=== PATIENT | male | born 1960 | race Hispanic/Latino ===

== ENCOUNTER 2016-12-19 14:43 | Observation (INO) | payer BC ==
[2016-12-19 14:44] VITALS: BMI 29.8
[2016-12-19] MEDS ORDERED: Sodium Chloride 0.9% 1,000 ML IV ONE (16:08)
--- NOTE | 2016-12-19 16:41 | RAD ---
PROCEDURE: CHEST RADIOGRAPH, 1 VIEW HISTORY: SOB COMPARISON: None available. FINDINGS: LUNGS: The lungs are well inflated and clear. PLEURA: No pneumothorax or pleural fluid seen. CARDIOVASCULAR: Normal. OSSEOUS STRUCTURES: No significant abnormalities. VISUALIZED UPPER ABDOMEN: Normal. OTHER FINDINGS: A right DRILLING PLANT OPERATOR shunt catheter is partially visualized. IMPRESSION: No active pulmonary disease.
--- NOTE | 2016-12-19 16:56 | C.PDOC ---
History Of Present Illness 56 y/o male is sent to the ED by Dr. Paniagua for worsening weakness in the bilateral lower extremities. Patient reports past history of stroke causing "trouble walking" due to weakness. Patient is a poor historian and cannot contribute further. Patient denies worsening of weakness, new weakness, leg pain , leg swelling, pain with urination, or other complaints. He states that he was able to walk with his cane as usual today. Time Seen by Provider: 12/19/16 16:02 Chief Complaint (Nursing): GI Problem History Per: Patient History/Exam Limitations: no limitations Onset/Duration Of Symptoms: Persistent Current Symptoms Are (Timing): Still Present Severity: Moderate Recent travel outside of the [place]: No Past Medical History Reviewed: Historical Data, Nursing Documentation, Vital Signs Vital Signs: Last Vital Signs Temp 98.1 F 12/19/16 15:12 Pulse 90 12/19/16 15:12 Resp 20 12/19/16 15:12 BP 124/91 H 12/19/16 15:12 Pulse Ox 97 12/19/16 18:51 - Medical History PMH: Bipolar Disorder, COPD, Gall Bladder Disease, HTN, Hypothyroidism, Schizophrenia Surgical History: Cholecystectomy - [facility] Procedures INSERTION OF INFUSION DEV INTO L BASILIC VEIN, PERC APPROACH (08/24/16) INSERTION OF INFUSION DEV INTO L SUBCLAV VEIN, PERC APPROACH (08/24/16) ULTRASONOGRAPHY OF LEFT UPPER EXTREMITY VEINS, GUIDANCE (08/24/16) Family History: States: No Known Family Hx - Social History Hx Tobacco Use: Yes (1PPD) Hx Alcohol Use: No Hx Substance Use: No (DENIED) - Immunization History Hx Tetanus Toxoid Vaccination: No Hx Influenza Vaccination: No Hx Pneumococcal Vaccination: No Review Of Systems Except As Marked, All Systems Reviewed And Found Negative. Genitourinary: Negative for: Dysuria Musculoskeletal: Negative for: Leg Pain (or swelling) Neurological: Positive for: Weakness (b/l lower extremities - due to stroke) Physical Exam - Physical Exam Appears: Non-toxic, No Acute Distress Skin: Normal Color, Warm, Dry Head: Atraumatic, Normacephalic Eye(s): bilateral: Normal Inspection Oral Mucosa: Moist Neck: Normal ROM Chest: Symmetrical Cardiovascular: Rhythm Regular, No Friction Rub, No Murmur Respiratory: Normal Breath Sounds, No Rales, No Rhonchi, No Wheezing Gastrointestinal/Abdominal: Soft, No Tenderness Back: Normal Inspection, No CVA Tenderness Extremity: No Tenderness, No Swelling, Other (b/l lower extremity weakness; FROM b/l upper extremities) Pulses: Left Dorsalis Pedis: Normal, Right Dorsalis Pedis: Normal Neurological/Psych: No Oriented x3, Normal Speech, Normal Cognition Disoriented To: Place, Time ED Course And Treatment - Laboratory Results Result Diagrams: 12/19/16 18:41 12/19/16 18:41 ECG: Interpreted By Me ECG Rhythm: Sinus Rhythm Interpretation Of ECG: T wave abnormalities in V2-V5 - changed from 11/05/2016 Rate From EC (bpm) O2 Sat by Pulse Oximetry: 97 (ra) Pulse Ox Interpretation: Normal - Other Rad Chest X-Ray X-Ray: Viewed By Me, Read By Radiologist (Addie Lindquist MD) Interpretation: FINDINGS: LUNGS: The lungs are well inflated and clear. PLEURA: No pneumothorax or pleural fluid seen. CARDIOVASCULAR: Normal. OSSEOUS STRUCTURES: No significant abnormalities. VISUALIZED UPPER ABDOMEN: Normal. OTHER FINDINGS: A right PULLEY MAINTAINER shunt catheter is partially visualized. IMPRESSION: No active pulmonary disease. Medical Decision Making Medical Decision Making: Plan: * EKG * CXR * Blood Work * Urinalysis * IV Fluids The case was discuss with Dr. Paniagua. HE states that the patient is an unsafe discharge as there is frequent falls, increased confusion, and weakness and will admit to his service. EKG found to have T wave inversion, but patient has no chest pain or Shortness of breath. Disposition - Disposition Disposition: HOSPITALIZED Disposition Time: 17:30 Condition: STABLE - Clinical Impression Clinical Impression: Generalized weakness, Frequent falls, Failure to thrive, Abnormal EKG - PA / DISTRIBUTOR SALES MANAGER / Resident Statement MD/DO has reviewed & agrees with the documentation as recorded. - Scribe Statement The provider has reviewed the documentation as recorded by the Scribe (Ana Calhoun) All medical record entries made by the Scribe were at my direction and personally dictated by me. I have reviewed the chart and agree that the record accurately reflects my personal performance of the history, physical exam, medical decision making, and the department course for this patient. I have also personally directed, reviewed, and agree with the discharge instructions and disposition.
[2016-12-19 18:52] LABS: BASO % 0.6 % (0.0-2.0); EOS # 0.2 K/uL (0.0-0.7); EOS % 2.7 % (0.0-4.0); HEMATOCRIT 39.6 % (35.0-51.0); LYMPH # 1.6 K/uL (1.0-4.3); LYMPH % 18.1 % (20.0-40.0); MEAN CELL VOLUME 95.7 fL (80.0-94.0); MEAN CORPUSCULAR HEMOGLOBIN 31.9 pg (27.0-31.0); MEAN CORPUSCULAR HGB CONC 33.4 g/dL (33.0-37.0); MEAN PLATELET VOLUME 9.5 fL (7.2-11.7); MONO # 0.8 K/uL (0.0-0.8); MONO % 8.9 % (0.0-10.0); RED CELL DISTRIBUTION WIDTH 13.3 % (11.5-14.5); WHITE BLOOD COUNT 8.7 K/uL (4.8-10.8)
[2016-12-19 19:00] LABS: CHLORIDE 104 mmol/L (98-107); POTASSIUM 4.1 mmol/L (3.6-5.2); SODIUM 138 mmol/L (132-148)
[2016-12-19 19:02] LABS: GFR AFRICAN-AMERICAN > 60
[2016-12-19 19:03] LABS: ALKALINE PHOSPHATASE 34 U/L (38-126); ALT/SGPT 12 U/L (21-72); AST/SGOT 27 U/L (17-59); BILIRUBIN,TOTAL 0.5 mg/dL (0.2-1.3); BLOOD UREA NITROGEN 22 mg/dL (9-20); CALCIUM 8.5 mg/dl (8.6-10.4); CARBON DIOXIDE 23 mmol/L (22-30); GLUCOSE,RANDOM 91 mg/dL (75-110); TOTAL PROTEIN 6.4 g/dL (6.3-8.3)
[2016-12-19 20:20] VITALS: RESP 20
[2016-12-19] MEDS: Divalproex 500 mg DR Tab PO SCH (23:00)
--- NOTE | 2016-12-20 09:37 | CP.PCM.PN ---
Subjective - Date & Time of Evaluation Date of Evaluation: 12/20/16 Time of Evaluation: 09:00 - Subjective Subjective: Medicine Note- Dr. Paniagua's service Patient was seen and examined at bedside. Patient reports that he came in to the hospital because he fell. When asked what else he was feeling or why he fell , he just insisted that he felt weak. No events overnight, per nursing. Patient is on 1:1. Objective - Vital Signs/Intake and Output Vital Signs (last 24 hours): Temp Pulse Resp BP Pulse Ox 98.0 F 75 20 156/90 H 96 12/20/16 08:36 12/20/16 08:36 12/20/16 08:36 12/20/16 08:36 12/20/16 08:36 - Medications Medications: Current Medications Alprazolam (Xanax) 0.5 mg PO Q12 PRN PRN Reason: Anxiety Last Admin: 12/19/16 23:00 Dose: 0.5 mg Divalproex Sodium (Depakote Dr) 500 mg PO BID DAVID Last Admin: 12/19/16 23:00 Dose: 500 mg Loperamide HCl (Imodium) 2 mg PO Q8 PRN PRN Reason: Diarrhea Last Admin: 12/20/16 05:47 Dose: 2 mg Risperidone (Risperdal Tab) 1 mg PO DAILY [facility] Zolpidem Tartrate (Ambien) 5 mg PO HS PRN PRN Reason: Insomnia - Labs Labs: PT 11.7 SECONDS (9.7-12.2) 12/19/16 18:41 INR 1.0 12/19/16 18:41 APTT 21 SECONDS (21-34) 12/19/16 18:41 - Constitutional Appears: Non-toxic, No Acute Distress - Head Exam Head Exam: ATRAUMATIC, NORMAL INSPECTION, NORMOCEPHALIC - Eye Exam Pupil Exam: NORMAL ACCOMODATION, PERRL - ENT Exam ENT Exam: Mucous Membranes Moist - Respiratory Exam Respiratory Exam: Clear to Ausculation Bilateral, NORMAL BREATHING PATTERN. absent: Prolonged Expiratory Phase, Rales, Rhonchi, Wheezes - Cardiovascular Exam Cardiovascular Exam: REGULAR RHYTHM, +S1, +S2 - GI/Abdominal Exam GI & Abdominal Exam: Soft, Normal Bowel Sounds. absent: Tenderness, Diminished Bowel Sounds, Hernia, Hypoactive Bowel Sounds - Extremities Exam Extremities Exam: Normal Capillary Refill, Normal Inspection - Neurological Exam Neurological Exam: Alert, Awake, Oriented x3 Neuro motor strength exam: Left Upper Extremity: 5, Right Upper Extremity: 5, Left Lower Extremity: 5, Right Lower Extremity: 5 - Psychiatric Exam Psychiatric exam: Normal Affect, Normal Mood - Skin Skin Exam: Dry, Intact, Normal Color, Warm Assessment and Plan - Assessment and Plan (Free Text) Assessment: (1) Weakness Assessment & Plan: ordered physical therapy f/u UA and Urine C&S Social work consult for retirement Status: Acute (2) Normal pressure hydrocephalus Assessment & Plan: s/p AUTOBODY TECHNICIAN shunt Status: Acute (3) Schizo affective schizophrenia Assessment & Plan: Risperidone 1mg PO Daily Depakote 500mg PO BID Status: Acute (4) COPD (chronic obstructive pulmonary disease) Assessment & Plan: Duoneb Q2h PRN Advair 100/50 1 puff IH Q12H CXR- 12/19/16- No active disease. Status: Acute (5) Prophylactic Measure Pepcid 20 mg PO Daily SCDs
[2016-12-20] MEDS: Divalproex 500 mg DR Tab PO SCH ×2 (09:51→17:05)
[2016-12-20 14:11] LABS: RBC URINE < 1 /hpf (0-3); URINE BILIRUBIN NEGATIVE (NEGATIVE); URINE BLOOD 1+ (NEGATIVE); URINE COLOR Straw (YELLOW); URINE GLUCOSE (UA) NORMAL (Normal); URINE KETONE NEGATIVE (NEGATIVE); URINE LEUKOCYTE ESTERASE NEG Leu/uL (Negative); URINE PROTEIN NEGATIVE (NEGATIVE); URINE UROBILINOGEN NORMAL mg/dL (0.2-1.0); WBC URINE < 1 /hpf (0-5)
[2016-12-20] MEDS: Albuterol-Ipratrop 3 mg / 0.5 (3 ml) UD INH SCH ×2 (14:24→21:09)
--- NOTE | 2016-12-20 18:55 | CARD ---
APPROVED REPORT EKG Measurement Heart [id number] [id number] <Conclusion> Normal sinus rhythm T wave abnormality, consider anterolateral ischemia Abnormal ECG
[2016-12-20] MEDS: Fluticasone-Salmeterol 100-50mcg Diskus INH SCH (21:08)
[2016-12-21] MEDS: Albuterol-Ipratrop 3 mg / 0.5 (3 ml) UD INH SCH ×3 (02:02→13:20)
--- NOTE | 2016-12-21 08:45 | CP.PCM.PN ---
Subjective - Date & Time of Evaluation Date of Evaluation: 12/21/16 Time of Evaluation: 09:00 - Subjective Subjective: Medicine Note- Dr. Paniagua's service Patient was seen and examined at bedside. Patient reports no acute complaints at this time. No events overnight. Objective - Vital Signs/Intake and Output Vital Signs (last 24 hours): Temp Pulse Resp BP Pulse Ox 98.6 F 91 H 20 147/84 96 12/21/16 02:29 12/21/16 02:29 12/21/16 02:29 12/21/16 02:29 12/21/16 02:29 Intake and Output: 12/21/16 12/21/16 06:59 18:59 Intake Total 120 Balance 120 - Medications Medications: Current Medications Albuterol/Ipratropium (Duoneb 3 Mg/0.5 Mg (3 Ml) Ud) 3 ml INH RQ6 [facility] Last Admin: 12/21/16 07:35 Dose: 3 ml Alprazolam (Xanax) 0.5 mg PO Q12 PRN PRN Reason: Anxiety Last Admin: 12/21/16 06:19 Dose: 0.5 mg Divalproex Sodium (Depakote Dr) 500 mg PO BID [facility] Last Admin: 12/20/16 17:05 Dose: 500 mg Loperamide HCl (Imodium) 2 mg PO Q8 PRN PRN Reason: Diarrhea Last Admin: 12/20/16 17:05 Dose: 2 mg Nicotine (Nicoderm Cq) 1 patch TD DAILY [facility] Last Admin: 12/20/16 20:44 Dose: 1 patch Risperidone (Risperdal Tab) 1 mg PO DAILY [facility] Last Admin: 12/20/16 09:51 Dose: 1 mg Fluticasone/Salmeterol (Advair Diskus 100/50) 1 puff INH RQ12 [facility] Last Admin: 12/20/16 21:08 Dose: 1 puff Zolpidem Tartrate (Ambien) 5 mg PO HS PRN PRN Reason: Insomnia - Labs Labs: PT 11.7 SECONDS (9.7-12.2) 12/19/16 18:41 INR 1.0 12/19/16 18:41 APTT 21 SECONDS (21-34) 12/19/16 18:41 - Constitutional Appears: Non-toxic, No Acute Distress - Head Exam Head Exam: ATRAUMATIC, NORMAL INSPECTION, NORMOCEPHALIC - Eye Exam Pupil Exam: NORMAL ACCOMODATION, PERRL - ENT Exam ENT Exam: Mucous Membranes Moist - Respiratory Exam Respiratory Exam: Clear to Ausculation Bilateral, NORMAL BREATHING PATTERN. absent: Prolonged Expiratory Phase, Rales, Rhonchi, Wheezes - Cardiovascular Exam Cardiovascular Exam: REGULAR RHYTHM, +S1, +S2 - GI/Abdominal Exam GI & Abdominal Exam: Soft, Normal Bowel Sounds. absent: Tenderness, Diminished Bowel Sounds, Hernia, Hypoactive Bowel Sounds - Extremities Exam Extremities Exam: Normal Capillary Refill, Normal Inspection - Neurological Exam Neurological Exam: Alert, Awake, Oriented x3 - Psychiatric Exam Psychiatric exam: Normal Affect, Normal Mood - Skin Skin Exam: Dry, Intact, Normal Color, Warm Assessment and Plan - Assessment and Plan (Free Text) Assessment: (1) Weakness Assessment & Plan: ordered physical therapy Ua- +1 blood Urine C&S pending Social work consult for longterm Status: Acute (2) Normal pressure hydrocephalus Assessment & Plan: s/p RN NEUROSURGICAL shunt Status: Acute (3) Schizo affective schizophrenia Assessment & Plan: Risperidone 1mg PO Daily Depakote 500mg PO BID Status: Acute (4) COPD (chronic obstructive pulmonary disease) Assessment & Plan: Duoneb Q2h PRN Advair 100/50 1 puff IH Q12H CXR- 12/19/16- No active disease. Status: Acute (5) Prophylactic Measure Pepcid 20 mg PO Daily SCDs
[2016-12-21 08:51] VITALS: BP 124/79; PULSE 73; TEMP 97.6; O2SAT 95
[2016-12-21] MEDS: Divalproex 500 mg DR Tab PO SCH (09:49)
[2016-12-21] MEDS: Fluticasone-Salmeterol 100-50mcg Diskus INH SCH (10:36)
--- NOTE | 2017-01-23 08:38 | HP ---
The patient admitted to the hospital with complaints of weakness, fatigue, tiredness. Came to the ER , got admission. The patient has history of dementia, normopressure hydrocephalus. PHYSICAL EXAMINATION: GENERAL: The patient is awake, alert, oriented. VITAL SIGNS: Temperature 98, pulse 90. HEENT: Within normal limits. NECK: Supple. CHEST: Symmetric. HEART: Regular. ABDOMEN: Soft. EXTREMITIES: No edema. NEUROLOGIC: The patient with hydrocephalus, dementia. The patient will get bedrest, supportive care, IV fluids. Dariana Ambrosio MD cc: [phone] TT: 01/21/2017 08:37:15 jn 01/23/2017 07:37:19
== END 2016-12-21 14:45 | disposition home or self-care (01) ==
LOC: C.ER 14:43 → C.6T 18:51 → INTOOBSV 18:51 → C.6T 21:42
PROVIDERS: ADMIT Internal Medicine Pulmonary Disease; ATTEND Internal Medicine Pulmonary Disease
DX: M62.81 Muscle weakness (generalized) (principal); G91.2 (Idiopathic) normal pressure hydrocephalus; J44.9 Chronic obstructive pulmonary disease, unspecified; R29.6 Repeated falls; E03.9 Hypothyroidism, unspecified; F20.9 Schizophrenia, unspecified; F31.9 Bipolar disorder, unspecified; R62.7 Adult failure to thrive; I10 Essential (primary) hypertension; Z87.891 Personal history of nicotine dependence; I69.398 Other sequelae of cerebral infarction
CPT/HCPCS: 71010; 80053; 81001; 82550; 84484; 85025; 85610; 85730; 87086; 93005; 94640; 97110; 97162; 99285; G0378; G8978; G8979; J7040

== ENCOUNTER 2017-04-23 09:24 | Inpatient (IN) | payer MEDICARE, BC ==
[2017-04-23 09:24] VITALS: BMI 29.8
[2017-04-23 10:35] LABS: EOS # 0.2 K/uL (0.0-0.7); HEMATOCRIT 45.2 % (35.0-51.0); MEAN CORPUSCULAR HGB CONC 32.9 g/dL (33.0-37.0); MEAN PLATELET VOLUME 9.9 fL (7.2-11.7); MONO # 1.1 K/uL (0.0-0.8); RED CELL DISTRIBUTION WIDTH 12.8 % (11.5-14.5)
[2017-04-23 10:39] LABS: MONO % 8.5 % (0.0-10.0); WHITE BLOOD COUNT 12.6 K/uL (4.8-10.8)
--- NOTE | 2017-04-23 10:39 | C.PDOC ---
History Of Present Illness Hemant is a 56 y/o male who was brought to the ED via EMS. Pt states he feels well, has no complaints. Requesting xanax. Patient denies having any medical concerns, and states not knowing why his brother called the ambulance. Patient poor historian, did not contribute further. According to brother ([phone]) patient has been not taking care of himself , has been repeating thoughts persistently, and has not been to a pscyhiatrist or PMD. Does not leave the home. Does not do ADLs. Currently not taking any medications. Time Seen by Provider: 04/23/17 09:36 Chief Complaint (Nursing): Psychiatric Evaluation History Per: Family (Brother) History/Exam Limitations: no limitations Current Symptoms Are (Timing): Still Present Additional History Per: Patient Past Medical History Reviewed: Historical Data, Nursing Documentation, Vital Signs Vital Signs: Last Vital Signs Temp 98.0 F 04/23/17 15:29 Pulse 76 04/23/17 15:29 Resp 18 04/23/17 15:29 BP 130/88 04/23/17 15:29 Pulse Ox 96 04/23/17 16:37 - Medical History PMH: Anxiety, Bipolar Disorder, COPD, Depression, Gall Bladder Disease, HTN, Hypothyroidism, Schizophrenia Denies: Chronic Kidney Disease Surgical History: Cholecystectomy - [facility] Procedures INSERTION OF INFUSION DEV INTO L BASILIC VEIN, PERC APPROACH (08/24/16) INSERTION OF INFUSION DEV INTO L SUBCLAV VEIN, PERC APPROACH (08/24/16) ULTRASONOGRAPHY OF LEFT UPPER EXTREMITY VEINS, GUIDANCE (08/24/16) Family History: States: No Known Family Hx - Social History Hx Tobacco Use: Yes (1PPD) Hx Alcohol Use: No Hx Substance Use: No (DENIED) - Immunization History Hx Tetanus Toxoid Vaccination: No Hx Influenza Vaccination: No Hx Pneumococcal Vaccination: No Review Of Systems Except As Marked, All Systems Reviewed And Found Negative. Psych: Positive for: Other (Change in behavior, off medications). Negative for : Suicidal ideation Physical Exam - Physical Exam Appears: Non-toxic, No Acute Distress, Unkempt Skin: Normal Color, Warm, Dry Head: Atraumatic, Normacephalic Eye(s): bilateral: Normal Inspection, PERRL, EOMI Nose: Normal Oral Mucosa: Moist Neck: Normal, Normal ROM, Supple Chest: Symmetrical Cardiovascular: Rhythm Regular, No Murmur Respiratory: Normal Breath Sounds, No Accessory Muscle Use Gastrointestinal/Abdominal: Normal Exam, Soft, No Tenderness Back: Normal Inspection, No Vertebral Tenderness Extremity: Normal ROM, No Pedal Edema, Capillary Refill (< 2 sec), No Deformity Neurological/Psych: Oriented x3, Other (Bizarre affect, pressured speech) Gait: Steady ED Course And Treatment - Laboratory Results Result Diagrams: 04/23/17 10:30 04/23/17 10:30 O2 Sat by Pulse Oximetry: 96 (RA) Pulse Ox Interpretation: Normal - CT Scan/US CT Head Other Rad Studies (CT/US): Read By Radiologist, Radiology Report Reviewed (10:58 ) CT/US Interpretation: FINDINGS: HEMORRHAGE: No intracranial hemorrhage. BRAIN : Generalized atrophy. No mass effect or edema. Dense intracranial atherosclerotic calcifications. Scattered white matter hypodensities, which are nonspecific, but often seen with chronic microvascular ischemic disease. Please note that MRI with diffusion imaging is more sensitive in the detection of acute ischemic event. VENTRICLES: Interval placement of right posterior approach FOOD ORDER EXPEDITER shunt catheter which enters the posterior margin of the right lateral ventricle. Hydrocephalus appears stable to minimally decreased in extent. CALVARIUM: Unremarkable. PARANASAL SINUSES: Unremarkable as visualized. No significant inflammatory changes. MASTOID AIR CELLS: Unremarkable as visualized. No inflammatory changes. OTHER FINDINGS: None. IMPRESSION: Generalized atrophy. Nonspecific white matter changes. Interval placement of right posterior approach FOOD ORDER EXPEDITER shunt catheter which enters the posterior margin of the right lateral ventricle. Hydrocephalus appears stable to minimally decreased in extent. Progress Note: PT was evaluated by forensic social worker and notes pt does nt admission criteria. Time: 10:40. --Patient states that he feels good and is requesting to go home. Reports he does not want further treatment. Time: 11:38. -- Ordered regular diet meal. --Xanax 0.25 mg PO. Time: 12:19. --Consulted with Psychiatry on-call, Dr. John Best. Time: 12:30. --Patient will be admitted inpatient for altered mental status, failure to thrive, unable to maintain ADLs. Under service of Dr. Dariana Paniagua Disposition - Disposition Disposition: HOSPITALIZED Disposition Time: 16:25 Condition: STABLE - Clinical Impression Clinical Impression: Anxiety, Failure to thrive, Schizophrenia, Decreased activities of daily living (ADL) - PA / JAVA LEAD DEVELOPER / Resident Statement MD/DO has reviewed & agrees with the documentation as recorded. - Scribe Statement The provider has reviewed the documentation as recorded by the Scribe Ingrid Avila All medical record entries made by the Scribe were at my direction and personally dictated by me. I have reviewed the chart and agree that the record accurately reflects my personal performance of the history, physical exam, medical decision making, and the department course for this patient. I have also personally directed, reviewed, and agree with the discharge instructions and disposition.
[2017-04-23 10:40] LABS: BASO # 0.1 K/uL (0.0-0.2); BASO % 0.9 % (0.0-2.0); EOS % 1.4 % (0.0-4.0); LYMPH # 1.3 K/uL (1.0-4.3); NRBC % 0.1 % (0.0-2.0)
[2017-04-23 10:41] LABS: CHLORIDE 107 mmol/L (98-107)
[2017-04-23 10:42] LABS: POTASSIUM 4.1 mmol/L (3.6-5.2); SODIUM 145 mmol/L (132-148)
[2017-04-23 10:44] LABS: GFR AFRICAN-AMERICAN > 60
[2017-04-23 10:45] LABS: ALB/GLOB RATIO 1.1 (1.0-2.1); ALKALINE PHOSPHATASE 75 U/L (38-126); AST/SGOT 13 U/L (17-59); BILIRUBIN,TOTAL 0.5 mg/dL (0.2-1.3); BLOOD UREA NITROGEN 30 mg/dL (9-20); CARBON DIOXIDE 26 mmol/L (22-30); TOTAL PROTEIN 7.1 g/dL (6.3-8.3)
[2017-04-23 10:46] LABS: ALCOHOL SERUM < 10 mg/dl (0-10); ALT/SGPT 25 U/L (21-72); GLUCOSE,RANDOM 110 mg/dL (75-110)
--- NOTE | 2017-04-23 11:00 | CT ---
PROCEDURE: CT HEAD WITHOUT CONTRAST. HISTORY: ams COMPARISON: Noncontrast head CT performed 11/05/16 TECHNIQUE: Axial computed tomography images were obtained through the head/brain without intravenous contrast. Radiation dose: Total exam DLP = globe mGy-cm. This CT exam was performed using one or more of the following dose reduction techniques: Automated exposure control, adjustment of the mA and/or kV according to patient size, and/or use of iterative reconstruction technique. FINDINGS: HEMORRHAGE: No intracranial hemorrhage. BRAIN: Generalized atrophy. No mass effect or edema. Dense intracranial atherosclerotic calcifications. Scattered white matter hypodensities, which are nonspecific, but often seen with chronic microvascular ischemic disease. Please note that MRI with diffusion imaging is more sensitive in the detection of acute ischemic event. VENTRICLES: Interval placement of right posterior approach DUMPER OPERATOR shunt catheter which enters the posterior margin of the right lateral ventricle. Hydrocephalus appears stable to minimally decreased in extent. CALVARIUM: Unremarkable. PARANASAL SINUSES: Unremarkable as visualized. No significant inflammatory changes. MASTOID AIR CELLS: Unremarkable as visualized. No inflammatory changes. OTHER FINDINGS: None. IMPRESSION: Generalized atrophy. Nonspecific white matter changes. Interval placement of right posterior approach DUMPER OPERATOR shunt catheter which enters the posterior margin of the right lateral ventricle. Hydrocephalus appears stable to minimally decreased in extent.
[2017-04-23 11:24] LABS: RBC URINE 31 /hpf (0-3); URINE BILIRUBIN NEGATIVE (NEGATIVE); URINE BLOOD 1+ (NEGATIVE); URINE COLOR Yellow (YELLOW); URINE GLUCOSE (UA) NORMAL (Normal); URINE KETONE NEGATIVE (NEGATIVE); URINE LEUKOCYTE ESTERASE NEG Leu/uL (Negative); URINE PROTEIN 1+ mg/dL (NEGATIVE); URINE UROBILINOGEN NORMAL mg/dL (0.2-1.0); WBC URINE 3 /hpf (0-5)
--- NOTE | 2017-04-24 10:07 | CP.PCM.PN ---
Subjective - Date & Time of Evaluation Date of Evaluation: 04/24/17 Time of Evaluation: 10:00 - Subjective Subjective: Progress note for Dr. Paniagua's Service Pt seen and evaluated at bedside. Pt states he feels fine and only complains of hunger despite having just eaten breakfast. Denies chest pain, SOB, fever, chills, nausea, vomiting, dizziness, lightheadedness, and dysuria. Pt noted to be a poor historian. Objective - Vital Signs/Intake and Output Vital Signs (last 24 hours): Temp Pulse Resp BP Pulse Ox 98.3 F 76 20 138/89 97 04/24/17 07:56 04/24/17 07:56 04/24/17 07:56 04/24/17 07:56 04/24/17 07:56 Intake and Output: 04/24/17 04/24/17 06:59 18:59 Intake Total 400 Balance 400 - Medications Medications: Current Medications Acetaminophen (Tylenol 325mg Tab) 650 mg PO Q6 PRN PRN Reason: Pain, moderate (4-7) Last Admin: 04/23/17 20:44 Dose: 650 mg Alprazolam (Xanax) 0.5 mg PO BID PRN PRN Reason: Anxiety Last Admin: 04/24/17 08:16 Dose: 0.5 mg Assessment and Plan - Assessment and Plan (Free Text) Plan: Weakness Physical therapy- follow up recs UA- +1 blood and protein WBC-12.6 Follow up labs; trend white count CXR- 12/19/16- No active disease. Social work consult for senior care vs home discharge NPH s/p TRENCH DIGGER shunt CT head 04/23- hydrocephalus stable. No hemorrhage. Generalized atrophy. Schizoaffective Disorder Haldol 5 mg PO BID Depakote 250 mg PO BID Benadryl 50 mg PRN Benztropine 2mg PO PRN Management as per psych eval Anxiety Disorder Klonopin .5mg PO BID Ativan PRN Trazodone 100 mg PO HS Management as per psych eval Prophylaxis Pepcid 20 mg PO Daily SCDs Psych recs appreciated. Thank you for your help. Case discussed with Dr. Paniagua. All management as per Dr. Paniagua.
[2017-04-24 13:54] LABS: BASO # 0.1 K/uL (0.0-0.2); BASO % 0.7 % (0.0-2.0); EOS # 0.2 K/uL (0.0-0.7); EOS % 1.8 % (0.0-4.0); HEMATOCRIT 42.6 % (35.0-51.0); LYMPH # 1.3 K/uL (1.0-4.3); LYMPH % 11.7 % (20.0-40.0); MEAN CELL VOLUME 94.8 fL (80.0-94.0); MEAN CORPUSCULAR HEMOGLOBIN 31.5 pg (27.0-31.0); MEAN CORPUSCULAR HGB CONC 33.2 g/dL (33.0-37.0); MEAN PLATELET VOLUME 8.6 fL (7.2-11.7); MONO % 9.3 % (0.0-10.0); NRBC % 0.1 % (0.0-2.0); RED CELL DISTRIBUTION WIDTH 12.6 % (11.5-14.5); WHITE BLOOD COUNT 11.2 K/uL (4.8-10.8)
[2017-04-24 14:13] LABS: CHLORIDE 104 mmol/L (98-107); POTASSIUM 4.5 mmol/L (3.6-5.2); SODIUM 141 mmol/L (132-148)
[2017-04-24 14:15] LABS: AST/SGOT 16 U/L (17-59); BILIRUBIN,TOTAL 0.4 mg/dL (0.2-1.3); CARBON DIOXIDE 26 mmol/L (22-30); GFR AFRICAN-AMERICAN > 60
[2017-04-24 14:16] LABS: ALKALINE PHOSPHATASE 74 U/L (38-126); ALT/SGPT 20 U/L (21-72); BLOOD UREA NITROGEN 28 mg/dL (9-20); CALCIUM 8.6 mg/dl (8.6-10.4); GLUCOSE,RANDOM 111 mg/dL (75-110); TOTAL PROTEIN 6.5 g/dL (6.3-8.3)
--- NOTE | 2017-04-24 14:58 | PCM.PSYCH ---
Initial Psychiatric Evaluation - Initial Psychiatric Evaluation Type of Admission: Voluntary History of Present Illness and Precipitating Events: Patient is a 56 year old male with pmhx of schizoaffective disorder whose brother called 911 because patient has been not taking care of himself, has repeating thoughts, and has not been to a pscyhiatrist or PMD. Patient says he has not taken his risperidone or depakote in 1 year because they made his hands shake. Patient says he takes xanax for anxiety. He has not been to a psychiatrist in a year because his psychiatrist works in [facility] which is too far for him. He denies SI/ HI. He says he used to do heroin, but stopped at age 16. He smokes 5 cigarettes per day for many years. Today he is feeling nervous. He denies any auditory or visual hallucinations. He denies SI/HI. He keeps asking about what time he will get his next meal. After telling him what time he will get more food he says okay and then asks about it again a few minutes later. He denies previous hospitalizations for psychiatric reasons, but according to previous notes he has been hospitalized at [facility] and [facility] for schizophrenia/ bipolar disorder in the past. Psych: schizoaffective disorder, used to be on risperidone and depakote, xanax for anxiety PMH: possible storke 4 years ago Social: tobacco: 5 cigarettes / day for many years, previously 1 pack per day since childhood, hx of heroin as a teenager (says he stopped at age 16), according to previous note patient used to drink 1 bottle of vodka per day for 15 years. Current Medications: Active Medications Generic Name Dose Route Start Last Admin Trade Name Freq PRN Reason Stop Dose Admin Acetaminophen 650 mg 04/23/17 20:22 04/23/17 20:44 Tylenol 325mg Tab PO 650 mg Q6 PRN Administration Pain, moderate (4-7) Alprazolam 0.5 mg 04/23/17 20:25 04/24/17 08:16 Xanax PO 0.5 mg BID PRN Administration Anxiety Past Psychiatric History - Past Psychiatric History Previous Treatment History: Inpatient Pertinent Medical Hx (Current Medical&Sleep Prob, Allergies): Allergies Allergy/AdvReac Type Severity Reaction Status Date / Time No Known Allergies Allergy Verified 10/13/16 00:29 ALPRAZolam [Xanax] 0.5 mg PO Q12 PRN 12/19/16 Review of Systems - Psychiatric Psychiatric: Anxiety, Confusion, Irritability, Memory Loss Mental Status Examination - Personal Presentation Personal Presentation: Looks stated age - Affect Affect: Flat - Motor Activity Motor Activity: Psychomotor Agitation - Reliability in Providing Information Reliability in Providing Information: Poor, due to cognitve impairment - Speech Speech: Disorganized - Mood Mood: Depressed, Anxious - Formal Thought Process Formal Thought Process: No Impairment - Obsessions/Compulsions Obsessions: No Compulsions: No - Cognitive Functions Orientation: Person, Place, Situation, Time Sensorium: Alert Abstract Thinking: [place] Estimate of Intelligence: Below average Judgement: Imparied, as evidence by: Lack of insight into illness Memory: Remote impaired as evidenced by: Inability to recall sig life events - Risk Risk: Falls - Strength & Assets Inventory Strength & Assets Inventory: Family support DSM 5 DX - DSM 5 DSM 5 Diagnosis: Schizoaffective Disorder Anxiety Disorder Tobacco use disorder - Recommended/Plan of Treatment Treatment Recommendations and Plan of Treatment: Schizoaffective Disorder Haldol 5 mg PO BID Depakote 250 mg PO BID Benadryl 50 mg PRN Benztropine 2mg PO PRN Anxiety Disorder Klonopin .5mg PO BID Ativan PRN Trazodone 100 mg PO HS 33min
[2017-04-24] MEDS: Divalproex 250 mg DR Tab PO SCH (17:27)
[2017-04-25] MEDS: Divalproex 250 mg DR Tab PO SCH ×2 (09:07→18:00)
--- NOTE | 2017-04-25 09:27 | CP.PCM.PN ---
Subjective - Date & Time of Evaluation Date of Evaluation: 04/25/17 Time of Evaluation: 09:25 - Subjective Subjective: Progress note for Dr. Paniagua's Service Pt seen and evaluated at bedside. Pt states he feels fine and only expresses interest in eating. He denies chest pain, SOB, fever, chills, nausea, vomiting, dizziness, lightheadedness, and dysuria. Pt was seen yesterday by psych and medications were started. He will be evaluated for discharge today. Objective - Vital Signs/Intake and Output Vital Signs (last 24 hours): Temp Pulse Resp BP Pulse Ox 98.8 F 86 16 128/66 99 04/24/17 23:00 04/24/17 23:00 04/24/17 23:00 04/24/17 23:00 04/24/17 23:00 Intake and Output: 04/25/17 04/25/17 06:59 18:59 Intake Total 960 Balance 960 - Medications Medications: Current Medications Acetaminophen (Tylenol 325mg Tab) 650 mg PO Q6 PRN PRN Reason: Pain, moderate (4-7) Last Admin: 04/25/17 03:32 Dose: 650 mg Benztropine Mesylate (Cogentin) 2 mg PO Q6 PRN PRN Reason: Extra Pyramidal Symptoms Last Admin: 04/25/17 09:08 Dose: 2 mg Clonazepam (Klonopin) 0.5 mg PO BID [facility] Last Admin: 04/25/17 09:06 Dose: 0.5 mg Diphenhydramine HCl (Benadryl) 50 mg PO Q6 PRN PRN Reason: Extra Pyramidal Symptoms Divalproex Sodium (Depakote Dr) 250 mg PO BID [facility] Last Admin: 04/25/17 09:07 Dose: 250 mg Haloperidol (Haldol) 5 mg PO Q8 PRN PRN Reason: Moderate Agitation Haloperidol (Haldol) 5 mg PO BID [facility] Last Admin: 04/25/17 09:09 Dose: 5 mg Haloperidol Lactate (Haldol) 5 mg IM Q8 PRN PRN Reason: Moderate Agitation Last Admin: 04/25/17 09:09 Dose: 5 mg Lorazepam (Ativan) 1 mg IM Q4 PRN PRN Reason: Agitation Lorazepam (Ativan) 1 mg PO Q6 PRN PRN Reason: Severe Agitation Last Admin: 04/25/17 09:06 Dose: 1 mg Trazodone HCl (Desyrel) 100 mg PO HS [facility] Last Admin: 04/24/17 21:11 Dose: 100 mg - Labs Labs: 04/24/17 13:42 04/24/17 13:42 - Constitutional Appears: No Acute Distress - Head Exam Head Exam: ATRAUMATIC - Eye Exam Eye Exam: EOMI, Normal appearance - ENT Exam ENT Exam: Mucous Membranes Moist - Respiratory Exam Respiratory Exam: Clear to Ausculation Bilateral, NORMAL BREATHING PATTERN - Cardiovascular Exam Cardiovascular Exam: REGULAR RHYTHM - GI/Abdominal Exam GI & Abdominal Exam: Soft. absent: Tenderness - Neurological Exam Neurological Exam: Alert, Awake, Oriented x3 - Skin Skin Exam: Dry, Warm Assessment and Plan - Assessment and Plan (Free Text) Plan: Weakness Physical therapy- follow up recs UA- +1 blood and protein WBC-12.6 Follow up labs; trend white count WBC-11.2 on 04/24 CXR- 12/19/16- No active disease. 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 No hemorrhage. Generalized atrophy. Schizoaffective Disorder Haldol 5 mg PO BID Depakote 250 mg PO BID Benadryl 50 mg PRN Benztropine 2mg PO PRN Management as per psych eval Anxiety Disorder Klonopin .5mg PO BID Ativan PRN Trazodone 100 mg PO HS Management as per psych eval Prophylaxis Pepcid 20 mg PO Daily SCDs Psych recs appreciated. Thank you for your help. Social work is working to obtain placement for this patient to be discharged to [facility]. Pending placement, patient is okay to be discharged. Case discussed with Dr. Paniagua. All management as per Dr. Paniagua.
[2017-04-25 10:45] VITALS: RESP 20
[2017-04-25 11:19] LABS: BASO # 0.1 K/uL (0.0-0.2); BASO % 0.8 % (0.0-2.0); EOS # 0.2 K/uL (0.0-0.7); EOS % 1.9 % (0.0-4.0); HEMATOCRIT 40.8 % (35.0-51.0); LYMPH # 1.2 K/uL (1.0-4.3); LYMPH % 10.2 % (20.0-40.0); MEAN CELL VOLUME 93.7 fL (80.0-94.0); MEAN CORPUSCULAR HEMOGLOBIN 31.5 pg (27.0-31.0); MEAN CORPUSCULAR HGB CONC 33.6 g/dL (33.0-37.0); MEAN PLATELET VOLUME 8.5 fL (7.2-11.7); MONO # 1.1 K/uL (0.0-0.8); RED CELL DISTRIBUTION WIDTH 12.8 % (11.5-14.5); WHITE BLOOD COUNT 12.1 K/uL (4.8-10.8)
[2017-04-25 11:49] LABS: CHLORIDE 106 mmol/L (98-107)
[2017-04-25 11:50] LABS: POTASSIUM 4.4 mmol/L (3.6-5.2); SODIUM 141 mmol/L (132-148)
[2017-04-25 11:52] LABS: ALKALINE PHOSPHATASE 71 U/L (38-126); AST/SGOT 21 U/L (17-59); BILIRUBIN,TOTAL 0.4 mg/dL (0.2-1.3); CARBON DIOXIDE 23 mmol/L (22-30); GFR AFRICAN-AMERICAN > 60; TOTAL PROTEIN 6.6 g/dL (6.3-8.3)
[2017-04-25 11:53] LABS: ALT/SGPT 18 U/L (21-72); BLOOD UREA NITROGEN 35 mg/dL (9-20); CALCIUM 8.7 mg/dl (8.6-10.4); GLUCOSE,RANDOM 101 mg/dL (75-110)
[2017-04-25 16:36] VITALS: PULSE 86; TEMP 98; O2SAT 97
[2017-04-26 10:44] VITALS: BP 127/84
[2017-04-26] MEDS: Divalproex 250 mg DR Tab PO SCH (11:55)
--- NOTE | 2017-04-26 13:35 | CP.PCM.PN ---
Subjective - Date & Time of Evaluation Date of Evaluation: 04/26/17 Time of Evaluation: 09:00 - Subjective Subjective: PGY3 on medicine Dr. Paniagua service: Pt seen and examined at bedside this morning. No acute changes overnight. No acute events overnight per RN. Pt asking his dog's welfare and want to speak to his brother. Pt to be discharge to [facility] [place] today. Objective - Vital Signs/Intake and Output Vital Signs (last 24 hours): Temp Pulse Resp BP Pulse Ox 98 F 86 20 127/84 97 04/25/17 16:00 04/25/17 16:00 04/25/17 16:00 04/26/17 10:34 04/25/17 16:00 Intake and Output: 04/26/17 04/26/17 06:59 18:59 Intake Total 1200 Balance 1200 - Medications Medications: Current Medications Acetaminophen (Tylenol 325mg Tab) 650 mg PO Q6 PRN PRN Reason: Pain, moderate (4-7) Last Admin: 04/26/17 09:49 Dose: 650 mg Benztropine Mesylate (Cogentin) 2 mg PO Q6 PRN PRN Reason: Extra Pyramidal Symptoms Last Admin: 04/26/17 11:56 Dose: 2 mg Clonazepam (Klonopin) 0.5 mg PO BID [facility] Last Admin: 04/26/17 09:49 Dose: 0.5 mg Diphenhydramine HCl (Benadryl) 50 mg PO Q6 PRN PRN Reason: Extra Pyramidal Symptoms Divalproex Sodium (Depakote Dr) 250 mg PO BID [facility] Last Admin: 04/26/17 11:55 Dose: 250 mg Haloperidol (Haldol) 5 mg PO Q8 PRN PRN Reason: Moderate Agitation Haloperidol (Haldol) 5 mg PO BID [facility] Last Admin: 04/26/17 11:56 Dose: 5 mg Haloperidol Lactate (Haldol) 5 mg IM Q8 PRN PRN Reason: Moderate Agitation Last Admin: 04/25/17 09:09 Dose: 5 mg Lorazepam (Ativan) 1 mg IM Q4 PRN PRN Reason: Agitation Lorazepam (Ativan) 1 mg PO Q6 PRN PRN Reason: Severe Agitation Last Admin: 04/26/17 09:49 Dose: 1 mg Trazodone HCl (Desyrel) [address] [facility] Last Admin: 08/22/17 22:16 Dose: 100 mg - Labs Labs: 04/25/17 11:04 04/25/17 11:04 - Constitutional Appears: Non-toxic, No Acute Distress - Head Exam Head Exam: NORMOCEPHALIC - Eye Exam Pupil Exam: NORMAL ACCOMODATION - Respiratory Exam Respiratory Exam: Clear to Ausculation Bilateral, NORMAL BREATHING PATTERN. absent: Wheezes - Cardiovascular Exam Cardiovascular Exam: REGULAR RHYTHM, +S1, +S2. absent: Gallop - GI/Abdominal Exam GI & Abdominal Exam: Soft, Normal Bowel Sounds - Neurological Exam Neurological Exam: Alert, Awake - Psychiatric Exam Psychiatric exam: Normal Mood Assessment and Plan - Assessment and Plan (Free Text) Assessment: Weakness Physical therapy- TCA UA- +1 blood and protein WBC-12.6 Follow up labs; trend white count WBC-11.2 on 04/24 CXR- 12/19/16- No active disease. Will DC to [facility] s/p [employer] shunt CT head 04/23- hydrocephalus stable. No hemorrhage. Generalized atrophy. Schizoaffective Disorder Haldol 5 mg PO BID Depakote 250 mg PO BID Benadryl 50 mg PRN Benztropine 2mg PO PRN Management as per psych eval Anxiety Disorder Klonopin .5mg PO BID Ativan PRN Trazodone 100 mg PO HS Management as per psych eval Prophylaxis Pepcid 20 mg PO Daily SCDs Psych recs appreciated. Thank you for your help. DC to [facility] today. Case discussed with Dr. Paniagua. All management as per Dr. Paniagua.
== END 2017-04-26 13:43 | DRG 885 ==
LOC: C.ER 09:24 → C.9E 12:28 → C.3T 16:23
PROVIDERS: ADMIT Internal Medicine Pulmonary Disease; ATTEND Internal Medicine Pulmonary Disease
DX: F25.9 Schizoaffective disorder, unspecified (principal); G91.2 (Idiopathic) normal pressure hydrocephalus; F41.9 Anxiety disorder, unspecified; F17.210 Nicotine dependence, cigarettes, uncomplicated; Z98.2 Presence of cerebrospinal fluid drainage device